=== PATIENT | female | born 1955 | race Caucasian/White ===

== ENCOUNTER → 2016-07-10 | Outpatient (CLI) | payer OTHER, MEDICARE ==
[~2016-07-10] MED LIST: ACETAMINOPHEN PO; ALPRAZOLAM PO; ASPIRINEC PO; ATARAX PO; BUSPAR PO; CELEXA PO; MEVACOR PO; NERVE PILL; PHENERGAN PO; PRAVACHOL PO; ULTRAM PO; ZANTAC PO
--- NOTE | ~2016-07-10 | MR32 ---
[facility] A Service of [facility] RADIOLOGY TEXT RESULTS PATIENT: JACQUI ARRIETA LOCATION: [facility] : 53 UNIT #: [id number] AGE: [address]: Claudia Hui APRN SEX: F ORDER DR: [id number] [facility] [address] [place], [place] [address] [id number] O MR#: [id number] Acc #: [id number] NAME: JACQUI ARRIETA. : 1955 SEX: F STUDY DATE/TIME: 07/10/2016 10:51 UNIT: [facility] ROOM: STUDY DESCRIPTION: MR Cervical Wo Contrast Attending Physician: Claudia Hui A.P.R.N. Ordering Physician: Claudia Hui A.P.R.N. Primary Care Physician: Denise Dasilva M.D. MRI CENTER REPORT This report is preliminary unless electronic signature is present. EXAM MRI of the cervical spine without contrast. HISTORY Numbness, right-sided neck pain radiates to the right side for 2 months, bilateral hand and finger numbness for 2 months. COMMENT MRI of the cervical spine was performed without contrast, using routine 1.5-T imaging technique. Plain film comparison is from 05/26/2016. Sagittal alignment is normal. Intervertebral discs are desiccated in general, and there is multilevel severe loss of Intervertebral disc height with endplate spondylosis, most prominent from C3-C4 through C6-C7. There is about 2 mm of anterolisthesis of C7 on T1, which is degenerative in etiology. There is marrow endplate degenerative change at multiple levels, most prominent at C3-C4 and C4-C5, where it is mixed, but incudes type 1 changes. There is no Chiari I malformation. At C2-C3, there is severe asymmetric left-sided facet degenerative change and moderate left-sided foraminal narrowing, but no canal stenosis. At C3-C4, moderate concentric disc osteophyte complex with uncovertebral osteophyte formation bilaterally and asymmetric left-sided facet degenerative change. There is mild cord flattening and canal stenosis and severe [id number]-right foraminal narrowing. At C4-C5, centric desiccated disc osteophyte complex with uncovertebral osteophyte formation. Mild left and moderate right-sided facet degenerative change. Moderate to severe cord flattening and canal STS. [facility] A Service of [facility] RADIOLOGY TEXT RESULTS PATIENT: JACQUI ARRIETA LOCATION: [facility] : 53 UNIT #: [id number] AGE: [address]: Claudia Hui APRN SEX: F ORDER DR: stenosis, worse to the left side. Suspect subtle signal abnormality within the cord at this level, which is most likely a manifestation of compressive myelopathy. Severe foraminal impingement bilaterally, worse to the left. At C5-C6, moderate right-sided facet degenerative change, moderate concentric desiccated disc osteophyte complex with uncovertebral osteophyte formation, worse to the left. There is mild cord flattening and canal stenosis, worse to the left. Severe left and mild to moderate right-sided foraminal narrowing. At C6-C7, there is mild bilateral facet degenerative change, concentric desiccated disc osteophyte complex with uncovertebral osteophyte formation worse to the left than the right side. There is mild flattening of the thecal sac, worse to the left, and there is fairly severe left and more moderate right-sided foraminal narrowing. At C7-T1, facet degenerative change asymmetrically severe on the left. This likely accounts for the anterolisthesis of C7 on T1. Mild to moderate right-sided facet degenerative change. Mild posterior disc bulge, but no canal stenosis. There is moderate to severe left-sided foraminal narrowing. IMPRESSION 1. There is multilevel cervical degenerative change with details provided above. Most significant disease is seen at the level of C4-C5, where the combination of findings results in cord flattening, canal stenosis, and bilateral foraminal impingement. I suspect that there is subtle signal abnormality in the cord at the level of C4-C5, due to compressive myelopathy. Milder canal stenosis at other levels. At many levels, foraminal impingement is severe. 2. Please refer to the Comments section and correlate with radicular distribution. Dictated by... Olivia Kingsley M.D. THIS IS AN ELECTRONICALLY VERIFIED REPORT Olivia Kingsley M.D. at 07/12/2016 3:12 PM BYRON/elvia TD: 07/12/2016 13:12 JOB #: [id number] MRI CENTER REPORT COPY
== END | disposition home or self-care (01) ==
LOC: CMRI 09:01
DX: M50.30 Other cervical disc degeneration, unspecified cervical region (principal); R20.0 Anesthesia of skin; M47.812 Spondylosis without myelopathy or radiculopathy, cervical region; M48.02 Spinal stenosis, cervical region
CPT/HCPCS: 72141